=== PATIENT | male | born 1990 | race Caucasian/White ===

== ENCOUNTER 2019-02-06 03:16 | Emergency (ER) | payer OTHER ==
[~2019-02-06] VITALS: Ht 185.4 cm; Wt 108.9 kg
--- NOTE | 2019-02-06 03:30 | NUR ---
PT BIBSELF C/O NONRADIATING MIDSTERNAL CHEST TIGHTNESS/ BURNING SENSATION. PT AOX4 RR EVEN AND UNLABORED. NO SOB NOTED. NO NVD AT THIS TIME. PT GOWNED AND PLACED ON MONITOR. PT NOT DIAPHORETIC.
[2019-02-06] MEDS ORDERED: NITROGLYCERIN 0.4 MG/TAB BOTTLE ONE (03:47)
[2019-02-06] MEDS ORDERED: NITROGLYCERIN PACKET 1 GM PACKET ONE (03:47)
[2019-02-06] MEDS ORDERED: ONDANSETRON HCL/PF 4 MG/2 ML VIAL ONE (03:47)
[2019-02-06] MEDS ORDERED: MORPHINE SULFATE INJ 4 MG/ML DISP.SYRIN ONE (03:48)
--- NOTE | 2019-02-06 03:49 | NUR ---
RADIOLOGY AT BEDSIDE FOR XRAY
[2019-02-06 03:54] LABS: CALCIUM, SERUM 9.6 mg/dL (8.5-10.1); CARBON DIOXIDE 28 mmol/L (21-32); CHLORIDE 106 mmol/L (98-107); CREATININE 1.1 mg/dL (0.6-1.3); GLUCOSE 118 mg/dL (74-106); POTASSIUM 3.5 mmol/L (3.5-5.1); SODIUM SERUM 142 mmol/L (136-145); UREA NITROGEN, BLOOD 9 mg/dL (7-18)
[2019-02-06] MEDS ORDERED: ONDANSETRON HCL/PF 4 MG/2 ML VIAL IVP ONE (04:00)
[2019-02-06] MEDS ORDERED: NITROGLYCERIN PACKET 1 GM PACKET TD ONE (04:00)
[2019-02-06] MEDS ORDERED: NITROGLYCERIN 0.4 MG/TAB BOTTLE SL ONE (04:00)
[2019-02-06] MEDS ORDERED: MORPHINE SULFATE INJ 2 MG/ML DISP.SYRIN IV ONE (04:00)
[2019-02-06 04:02] LABS: BASOPHILS % (AUTO) 0.3 % (0.0-2.0); EOSINOPHILS % (AUTO) 1.2 % (0.0-6.0); HEMATOCRIT 48 % (39-51); HEMOGLOBIN 16.7 g/dL (13.5-17.5); LYMPHOCYTES # (AUTO) 2.4 /CMM (0.8-4.8); LYMPHOCYTES % (AUTO) 21.9 % (20.0-44.0); MEAN CORPUSCULAR HGB CONC 35 g/dl (31.0-36.0); MEAN CORPUSCULAR VOLUME 95 fL (80-96); MONOCYTES % (AUTO) 9.2 % (2.0-12.0); NEUTROPHILS # (AUTO) 7.5 /CMM (1.8-8.9); NEUTROPHILS % (AUTO) 67.4 % (43.0-81.0); PLATELET COUNT (AUTO) 290 /CMM (150-450); RED BLOOD CELL COUNT(AUTO) 5.09 MIL/uL (4.5-6.0); WHITE BLOOD COUNT (AUTO) 11.1 K/uL (4.3-11.0)
[2019-02-06 04:10] LABS: ALANINE AMINOTRANSFERASE 31 U/L (12-78); ALKALINE PHOSPHATASE 68 U/L (46-116); ASPARTATE AMINOTRANSFERASE 16 U/L (15-37); B-TYPE NATRIURETIC PEPTIDE 46 PG/ML (0-125); BILIRUBIN,DIRECT 0.1 mg/dL (0.0-0.2); BILIRUBIN,TOTAL 0.5 mg/dL (0.2-1.0); TOTAL PROTEIN, SERUM 7.2 g/dL (6.4-8.2)
--- NOTE | 2019-02-06 04:25 | NUR ---
2ND SL NITRO TAB GIVEN FOR CHEST PAIN 11/25.
--- NOTE | 2019-02-06 04:30 | NUR ---
DR. ZAMARRIPA MADE AWARE PT DENIES CHEST PAIN AT THIS TIME, HOWEVER CONTINUES TO HAVE CHEST BURNING SENSATION.
[2019-02-06] MEDS ORDERED: MAG HYDROX/AL HYDROX/SIMETH 30 ML UDC ONE (04:35)
[2019-02-06] MEDS ORDERED: LIDOCAINE VISCOUS 2% UD 15 ML UDC ONE (04:35)
[2019-02-06] MEDS ORDERED: LORAZEPAM INJ 2 MG/ML VIAL IV ONE (05:00)
[2019-02-06] MEDS ORDERED: LIDOCAINE VISCOUS 2% UD 15 ML UDC MM ONE (05:00)
[2019-02-06] MEDS ORDERED: MAG HYDROX/AL HYDROX/SIMETH 30 ML UDC PO ONE (05:00)
[2019-02-06] MEDS ORDERED: IV NS 0.9% 1,000 ML BAG IV ONE (05:00)
--- NOTE | 2019-02-06 05:03 | NUR ---
URINE COLLECTED. SENT TO LAB
[2019-02-06] MEDS ORDERED: LORAZEPAM INJ 2 MG/ML VIAL ONE (05:06)
[2019-02-06 05:32] LABS: APPEARANCE,URINE Clear (CLEAR); BILIRUBIN,URINE Negative (NEGATIVE); BLOOD, URINE Negative Ery/uL (NEGATIVE); COLOR,URINE Yellow (YELLOW); KETONES,URINE Trace (NEGATIVE); LEUKOCYTE ESTERASE ,URINE Negative (NEGATIVE); NITRITE, URINE Negative (NEGATIVE); PROTEIN,URINE Negative (NEGATIVE); UGLUCOSE Negative (NEGATIVE)
[2019-02-06 06:51] LABS: BACTERIA,URINE Rare /HPF (None Seen); RBC,URINE 0-2 /HPF (0-2); SQUAMOUS EPITHELIAL CELL,UR None Seen /HPF (None Seen); WBC,URINE 0-2 /HPF (0-3)
--- NOTE | 2019-02-06 07:22 | NUR ---
REPORT GIVEN TO MARY CULVER FOR CONTINUITY OF CARE.
[2019-02-06 07:49] VITALS: BP 128/68
--- NOTE | 2019-02-06 07:49 | NUR ---
Patient discharged to home in stable condition. Written and verbal after care instructions given. Patient verbalizes understanding of instruction.IV removed. Catheter intact and site benign. Pressure and 4x4 applied to site. No bleeding noted.
== END 2019-02-06 07:50 | disposition home or self-care (01) ==
LOC: ER 03:25
DX: R07.89 Other chest pain (principal); R00.2 Palpitations; J45.909 Unspecified asthma, uncomplicated; Z60.2 Problems related to living alone
CPT/HCPCS: 36415; 71045; 80048; 80076; 80305; 81001; 83880; 84484 ×2; 85025; 85378; 93005; 96374; 96375; 99284; J2060; J2270; J2405; J7030; 81000-TC

== ENCOUNTER 2019-09-07 12:31 | Emergency (ER) | payer OTHER ==
[~2019-09-07] VITALS: Ht 188 cm; Wt 104.3 kg
[2019-09-07 12:46] VITALS: BP 159/103
== END 2019-09-07 13:13 | disposition home or self-care (01) ==
LOC: ER 12:39
DX: J45.909 Unspecified asthma, uncomplicated (principal); F41.9 Anxiety disorder, unspecified; Z60.2 Problems related to living alone

== ENCOUNTER 2019-09-12 01:16 | Emergency (ER) | payer OTHER ==
[~2019-09-12] VITALS: Ht 185.4 cm; Wt 109.3 kg
[2019-09-12 01:26] VITALS: BP 158/80
--- NOTE | 2019-09-12 01:42 | NUR ---
Patient discharged to home in stable condition. Written and verbal after care instructions given. Patient verbalizes understanding of instruction. Pt ambulatory with a steady gait
== END 2019-09-12 01:43 | disposition home or self-care (01) ==
LOC: ER 01:17
DX: F41.9 Anxiety disorder, unspecified (principal); J45.909 Unspecified asthma, uncomplicated; Z60.2 Problems related to living alone

== ENCOUNTER 2019-10-26 12:38 | Emergency (ER) | payer OTHER ==
[~2019-10-26] VITALS: Ht 185.4 cm; Wt 104.3 kg
--- NOTE | 2019-10-26 12:50 | NUR ---
pt rec'd to er c/o cp for 3 days ekg done. monitors applied
[2019-10-26] MEDS ORDERED: LORAZEPAM 1 MG TABLET ONE (13:05)
--- NOTE | 2019-10-26 13:10 | NUR ---
vascular radiologist at bedside for xray.
--- NOTE | 2019-10-26 13:19 | NUR ---
ativan given per md order
[2019-10-26] MEDS ORDERED: LORAZEPAM 1 MG TABLET PO ONE (13:30)
[2019-10-26 14:01] VITALS: BP 144/97
--- NOTE | 2019-10-26 14:01 | NUR ---
PT. VERBALIZED UNDERSTANDING OF AFTERCARE INSTRUCTIONS.Patient discharged to home in stable condition. Written and verbal after care instructions given. Patient verbalizes understanding of instruction.
== END 2019-10-26 14:02 | disposition home or self-care (01) ==
LOC: ER 12:44
DX: F41.9 Anxiety disorder, unspecified (principal); J45.909 Unspecified asthma, uncomplicated; Z60.2 Problems related to living alone
CPT/HCPCS: 71045-TC

== ENCOUNTER 2019-10-28 16:09 | Emergency (ER) | payer OTHER ==
[~2019-10-28] VITALS: Ht 185.4 cm; Wt 104.3 kg
[2019-10-28 16:17] VITALS: BP 145/95
--- NOTE | 2019-10-28 17:05 | NUR ---
ESTHELA ATKINS AT BEDSIDE FOR EKG.
--- NOTE | 2019-10-28 17:39 | NUR ---
Patient discharged to home in stable condition. Written and verbal after care instructions given. Patient verbalizes understanding of instruction.
== END 2019-10-28 17:40 | disposition home or self-care (01) ==
LOC: ER 16:09
DX: R07.2 Precordial pain (principal); J45.909 Unspecified asthma, uncomplicated; R12 Heartburn; Z90.89 Acquired absence of other organs; Z60.2 Problems related to living alone